=== PATIENT | male | born 1965 | race Caucasian/White ===

== ENCOUNTER 2024-08-02 06:05 | Day surgery (SDC) | payer OTHER, SELFPAY ==
[2024-08-02] VITALS (7 sets, daily range): BP systolic 98–123; BP diastolic 59–91
[2024-08-02] MEDS: NORMOSOL-R/PLASMALYTE-A 1000 IV (06:29)
[2024-08-02] MEDS: TYLENOL 1000 MG PO (06:29)
--- NOTE | 2024-08-02 07:58 | OR.RPT ---
Addendum entered and electronically signed by Hector Clark MD 08/02/24 09:47:
The assistance of Irvin MULLER was required due to the complexity of the procedure. During the procedure she assisted with retraction, resection, and closure of the wound.
Original Note:
Operative Report
Operative Report
Primary Surgeon: Amber
Assisting: Irvin MULLER
Pre-op Diagnosis: Left thigh cyst
Post-op Diagnosis: Same
Procedure Performed: Excision of left thigh cyst
Anesthesia Type: MAC local
Specimen / Cultures: Left thigh cyst
Estimated Blood Loss: 2cc
Complications: None immediate
Operative Findings: 3x3 cm lesion, 6x3cm incision closed with absorbable sutures in layers
DATE OF SURGERY: 08/02/24
Indications: 58M with long history of left thigh cyst that irritated him. Elective excision under MAC local was planned. The area was marked together with the patient in the preop area.
PROCEDURE: After informed consent was obtained, the patient was brought to the operating suite. He was placed in the supine position and was given IV sedation by the Anesthesia team. The marked area was infiltrated with 1% lidocaine with epi. A
full thickness elliptical incision was made in the skin and carried down to the fascia with electrocautery. The soft tissue lesion was undermined from superior to inferior and excised in toto, then passed off the table as specimen. The wound was
irrigated with sterile saline and hemostasis was assured. The skin was undermined circumferentially with care to preserve the blood supply and then closed in layers with 3-0 vicryl deep dermal and running subcuticular 4-0 monocryl. Topical skin glue
was applied. The patient tolerated the procedure well and was transferred to recovery room in stable condition.
== END 2024-08-02 08:50 | disposition home or self-care (01) ==
LOC: SDS 06:05
PROVIDERS: ATTENDING PHYSICIAN Surgery
DX: L72.0 Epidermal cyst (principal)
CPT/HCPCS: 27337; 88304